=== PATIENT | female | born 1980 | race Two or more races ===

== ENCOUNTER 2016-09-14 22:37 | Emergency (ER) | payer SELFPAY ==
[~2016-09-14] VITALS: Ht 154.9 cm; Wt 92.5 kg
[~2016-09-14 22:37] MED LIST: AEROCHAMBER1 EACH MC; ALBUTEROL SULF8.5 GM INH; AZITHROMYCIN250 MG ORAL; NKM; PREDNISONE20 MG ORAL; PROMETHAZINE-C118 M1 ORAL; PROMETHAZINE-D118 ML ORAL
[2016-09-14] MEDS ORDERED: Ipratropium 0.02% Inh Soln 2.5ml UD HHN ONE (23:30)
[2016-09-14] MEDS ORDERED: PredniSONE 20mg tab ORAL ONE (23:30)
[2016-09-14] MEDS ORDERED: Albuterol ud Inhalation HHN ONE (23:30)
[2016-09-15] MEDS ORDERED: AEROCHAMBER1 EACH MC (00:23)
[2016-09-15] MEDS ORDERED: PROMETHAZINE-C118 M1 ORAL (00:23)
[2016-09-15] MEDS ORDERED: PREDNISONE20 MG ORAL (00:23)
[2016-09-15] MEDS ORDERED: ALBUTEROL SULF8.5 GM INH (00:23)
[2016-09-15 00:33] VITALS: BP 154/82
--- NOTE | 2016-09-15 04:10 | Emergency Room Report ---
History of Present Illness General Chief Complaint: Upper Respiratory Illness Source: Patient Present Illness HPI 36-year-old female presents ED complaining of cough x2 days. States cough is dry. Feel shortness of breath. Denies history of asthma or smoking. Denies sick contacts or recent travel. Denies chest pain. Denies earache or sore throat. No other aggravating or leading factors. Denies any other associated symptoms Allergies: Coded Allergies: No Known Allergies (Unverified , 02/25/16) Patient History Past Medical History: none Past Surgical History: none Pertinent Family History: none Social History: Denies: alcohol use, drug use, smoking Last Menstrual Period: august Now: No Immunizations: UTD Reviewed Nursing Documentation: PMH: Agreed, PSxH: Agreed Nursing Documentation-PMH Past Medical History: No Stated History Review of Systems All Other Systems: negative except mentioned in HPI Physical Exam Vital Signs Date Time Temp Pulse Resp B/P Pulse Ox O2 Delivery O2 Flow Rate FiO2 09/14/16 22:51 98.6 111 18 168/95 94 09/14/16 23:01 Room Air 09/14/16 23:42 21 Sp02 EP Interpretation: reviewed, normal General Appearance: no apparent distress, alert, GCS 15, non-toxic Head: normocephalic Eyes: bilateral eye PERRL, bilateral eye normal inspection ENT: hearing grossly normal, normal pharynx, no angioedema, normal voice Neck: normal inspection Respiratory: wheezing Cardiovascular #1: regular rate, rhythm, no edema Gastrointestinal: normal inspection Rectal: deferred Genitourinary: no CVA tenderness Musculoskeletal: normal inspection Neurologic: alert, oriented x3, responsive, motor strength/tone normal, sensory intact, speech normal Psychiatric: normal inspection Skin: normal inspection Lymphatic: normal inspection Medical Decision Making Diagnostic Impression: Primary Impression: Bronchitis ER Course Hospital Course 36-year-old female presents to ED complaining of cough, wheezing Differential diagnoses include: URI, bronchitis, asthma/COPD, pneumonia Clinical course Patient placed on stretcher. After initial history and physical I ordered prednisone and nebulizer treatment. Upon reassessment patient states cough and symptoms have improved. Findings consistent with bronchitis. Diagnosis - bronchitis Stable and discharged home with prescriptions for Rx coughy syrup, prednisone, albuterol. Instructed to followup with PMD. Return to ED if symptoms recur or worsen Last Vital Signs Date Time Temp Pulse Resp B/P Pulse Ox O2 Delivery O2 Flow Rate FiO2 09/15/16 00:33 100 18 154/82 94 Room Air 09/15/16 00:33 98.4 09/14/16 23:47 21 Status: improved Disposition: HOME, SELF-CARE Condition: Stable Scripts Codeine/Promethazine Hcl* (PROMETHAZINE-CODEINE SYRUP*) 118 Ml Syrup 5 ML ORAL Q6H Y for For Cough, #118 ML 0 Refills Prov: DARION ALLEN M.D. 09/15/16 Prednisone* (PREDNISONE*) 20 Mg Tablet 40 MG ORAL DAILY, #10 TAB Prov: DARION ALLEN M.D. 09/15/16 Inhaler, Assist Devices (AEROCHAMBER) 1 Each Spacer 1 EACH MC, #1 Prov: DARION ALLEN M.D. 09/15/16 Albuterol Sulfate* (ALBUTEROL SULFATE MDI*) 8.5 Gm Hfa.aer.ad 2 PUFF INH Q6H, #1 EA 0 Refills Prov: DARION ALLEN M.D. 09/15/16 Departure Forms: Return to Work Return to Work Date: Sep 17, 2016 Work Restrictions: None Patient Instructions: Acute Bronchitis, [id number] DARION ALLEN M.D. Sep 15, 2016 04:10
== END 2016-09-15 00:38 | disposition home or self-care (01) ==
LOC: EMR 23:00
DX: J20.9 Acute bronchitis, unspecified (principal)
CPT/HCPCS: 94640; 94664; 99284

== ENCOUNTER 2017-09-11 19:46 | Emergency (ER) | payer BC ==
[~2017-09-11] VITALS: Ht 152.4 cm; Wt 90.7 kg
[2017-09-11 20:12] VITALS: BP 130/84
[2017-09-11] MEDS ORDERED: CEPHALEXIN500 MG ORAL (20:24)
[2017-09-11] MEDS ORDERED: DIPHENHYDRAMINE25 M1 ORAL (20:24)
[2017-09-11 20:30] VITALS: BP 130/84
--- NOTE | 2017-09-12 14:42 | Emergency Room Report ---
History of Present Illness General Chief Complaint: Skin Rash/Abscess Source: Patient Present Illness HPI 37-year-old female presents to ED complaining of pain to her right eye. Nose there is a stye to her right lower eyelid. Came 2 days ago. Pain is sharp, 9 out of 10, nonradiating. States there was bleeding from the stye initially. Denies any bleeding now. Denies any photophobia or blurry vision. Denies any discharge. No other aggravating relieving factors. Denies any other associated symptoms Allergies: Coded Allergies: No Known Allergies (Unverified , 09/11/17) Patient History Past Medical History: none Past Surgical History: none Pertinent Family History: none Social History: Denies: smoking, alcohol use, drug use Now: No Immunizations: UTD Reviewed Nursing Documentation: PMH: Agreed; PSxH: Agreed Nursing Documentation-PMH Hx Asthma: No - Bronchittis Review of Systems All Other Systems: negative except mentioned in HPI Physical Exam Vital Signs Date Time Temp Pulse Resp B/P (MAP) Pulse Ox O2 Delivery O2 Flow Rate FiO2 09/11/17 20:02 98.3 77 18 130/84 99 Room Air 98.2 Sp02 EP Interpretation: reviewed, normal General Appearance: no apparent distress, alert, GCS 15, non-toxic Head: normocephalic, atraumatic Eyes: bilateral eye PERRL, bilateral eye EOMI, bilateral eye visual acuity, bilateral eye other - stye to R lower eyelid. no fluctuance or discharge ENT: normal ENT inspection Neck: normal inspection Respiratory: normal inspection Cardiovascular #1: normal inspection Gastrointestinal: normal inspection Rectal: deferred Genitourinary: no CVA tenderness Musculoskeletal: normal inspection Neurologic: alert, oriented x3, responsive, motor strength/tone normal, sensory intact, speech normal Psychiatric: normal inspection Skin: normal inspection Lymphatic: normal inspection Medical Decision Making Diagnostic Impression: Primary Impression: Stye Qualified Codes: H00.012 - Hordeolum externum right lower eyelid ER Course Hospital Course 21-year-old male presents to ED with R eye pain Differential diagnoses include: conjunctivitis, traumatic iritis, foreign body, corneal abrasion Clinical course Patient placed on stretcher. After initial history, physical exam reveals female in no acute distress. On exam there is a stye to the right lower eyelid. Minimal erythema. No induration or fluctuance. No discharge. Remainder of ocular exam unremarkable. Discussed findings with patient. We'll discharge on antibiotics. Recommend follow-up with ophthalmology as outpatient Diagnosis - stye Stable and discharged to home with prescription for Keflex. Followup with PMD/ Optho. Return to ED if symptoms recur or worsen Last Vital Signs Date Time Temp Pulse Resp B/P (MAP) Pulse Ox O2 Delivery O2 Flow Rate FiO2 09/11/17 20:30 98.3 18 130/84 99 Room Air 98.2 09/11/17 20:02 77 Status: improved Disposition: HOME, SELF-CARE Condition: Stable Scripts Cephalexin* (KEFLEX*) 500 Mg Capsule 500 MG ORAL EVERY 6 HOURS, #28 CAP Prov: Mk Swanson MD 09/11/17 Diphenhydramine Hcl* (DIPHENHYDRAMINE HCL*) 25 Mg Capsule 25 MG ORAL Q6H PRN for Itching, #30 CAP 0 Refills Prov: Mk Swanson MD 09/11/17 Referrals: NOT CHOSEN IPA/,REFERRING (PCP) Patient Instructions: Mk Ward MD Sep 12, 2017 14:42
== END 2017-09-11 20:30 | disposition home or self-care (01) ==
LOC: EMR 20:20
DX: H00.022 Hordeolum internum right lower eyelid (principal)
CPT/HCPCS: 99284